=== PATIENT | female | born 2000 ===

== ENCOUNTER 2025-01-18 15:14 | Emergency (ER) | payer BC, SELFPAY ==
[2025-01-18 15:27] VITALS: BP 128/90
[2025-01-18 15:45] LABS: Hematocrit 38.7 % (37.0-47.0); Hemoglobin 13.6 g/dL (12.0-16.0); Mean Corp Hgb Conc. 35.1 g/dL (33.0-37.0); Mean Corpuscular Volume 84.9 fL (81.0-99.0); Nucleated Red Blood Cells % 0 %; Platelet Count 297 10^3/uL (130-400); Red Cell Dist. Width 11.3 % (11.5-14.5)
[2025-01-18 16:00] LABS: Urine Character Slightly Cloudy (Clear)
[2025-01-18 16:03] LABS: HCG, Serum Qualitative Screen Negative
[2025-01-18 16:14] LABS: Urine Red Blood Cell 0-2 /HPF (0-2); Urine Squamous Cell 26-30 /LPF (Few); Urine White Cell 0-2 /HPF (0-5)
[2025-01-18 16:21] LABS: ALT (SGPT) 17 U/L (0-35); AST (SGOT) 23 U/L (14-36); Albumin 5.1 g/dl (3.5-5.0); Alkaline Phosphatase 70 U/L (38-126); Blood Urea Nitrogen 12 mg/dl (7-17); Calcium 9.8 mg/dl (8.4-10.2); Carbon Dioxide 18 mmol/L (22-30); Chloride 102 mmol/L (98-107); Glucose 68 mg/dl (70-99); Lipase 111 U/L (23-300); Potassium 4.4 mmol/L (3.5-5.1); Sodium 133 mmol/L (135-145); Total Protein 8.6 g/dl (6.3-8.2); eGFR > 60.00
== END 2025-01-18 19:06 ==
LOC: EMR 15:14
PROVIDERS: Emergency Medicine
DX: Z53.21 Procedure and treatment not carried out due to patient leaving prior to being seen by health care provider (principal)
CPT/HCPCS: 80053; 81003; 81015; 83690; 84703; 85025; 87086